=== PATIENT | female | born 1955 | race American Indian/Alaskan Native ===

== ENCOUNTER 2019-05-11 10:20 | Emergency (ER) | payer MEDICARE ==
[2019-05-11] MEDS ORDERED: SODIUM CHLORIDE 0.9% 1000 ML 1,000 ML IV ONE ×2 (10:55→13:20)
[2019-05-11] MEDS ORDERED: ONDANSETRON 4 MG/2 ML INJ IV ONE (10:55)
--- NOTE | 2019-05-11 11:36 | Emergency Department Report ---
HPI - General Chief Complaint: Nausea/Vomiting/Diarrhea Time Seen by Provider: 05/11/19 10:40 - HPI HPI: 64-year-old -[place] female presents to the emergency department with complaint of a 4 to 5-day history of fatigue, generalized weakness, right-sided upper abdominal pain, nausea and vomiting. Patient says she went to her primary care physician's office today, Dr. Doug Smith, but they called an ambulance to bring her to the emergency department "when they saw how I looked." She has a past medical history of hypertension. She has not taken anything for symptoms prior to presentation. She denies any recent travel or sick contacts at home. ED Past Medical Hx - Past Medical History Previous Medical History?: Yes Hx Hypertension: Yes - Surgical History Past Surgical History?: Yes Additional Surgical History: bilateral hip replacement in 2003 - Social History Smoking Status: Current Every Day Smoker Substance Use Type: None - Medications Home Medications: Home Medications Medication Instructions Recorded Confirmed Last Taken Type Albuterol INH(or & Nicu Only) 2 puff IH QID PRN #1 inh 05/11/19 Unknown Rx [ProAir HFA Inhaler] Benzonatate [Tessalon Perles] 100 mg PO Q8HR PRN #20 capsule 05/11/19 Unknown Rx ED Review of Systems ROS: Stated complaint: WEAKNESS/VOMITING Other details as noted in HPI Comment: All other systems reviewed and negative Constitutional: weakness, other (Fatigue). denies: chills Eyes: denies: eye pain, vision change ENT: denies: ear pain, throat pain Respiratory: denies: cough, shortness of breath Cardiovascular: denies: chest pain, palpitations Gastrointestinal: abdominal pain, nausea, vomiting Genitourinary: denies: dysuria, discharge Musculoskeletal: denies: back pain, arthralgia Skin: denies: rash, lesions Neurological: denies: headache, weakness Physical Exam - Physical Exam Vital Signs: Vital Signs 05/11/19 05/11/19 05/11/19 10:30 10:38 10:45 Temperature 100.1 F H Pulse Rate 108 H 112 H Respiratory 24 26 H 30 H Rate Blood Pressure 100/61 94/57 O2 Sat by Pulse 95 95 Oximetry Physical Exam: GENERAL: The patient is well-developed well-nourished. HENT: Normocephalic. Atraumatic. Patient has moist mucous membranes. EYES: Extraocular motions are intact. Pupils equal reactive to light bilaterally. NECK: Supple. Trachea is midline. CHEST/LUNGS: Clear to auscultation. A productive cough is heard. There is tachypnea but no accessory muscle use. There is no respiratory distress noted. HEART/CARDIOVASCULAR: Regular. There is no tachycardia. There is no murmur. ABDOMEN: Abdomen is soft. Right upper quadrant abdominal tenderness to palpation. No guarding. Patient has normal bowel sounds. There is no abdominal distention. SKIN: Skin is warm and dry. NEURO: The patient is awake, alert, and oriented. The patient is cooperative. The patient has no focal neurologic deficits. Normal speech. Cranial nerves II through XII grossly intact. MUSCULOSKELETAL: There is no tenderness or deformity. There is no evidence of acute injury. ED Course Vital Signs 05/11/19 05/11/19 05/11/19 10:30 10:38 10:45 Temperature 100.1 F H Pulse Rate 108 H 112 H Respiratory 24 26 H 30 H Rate Blood Pressure 100/61 94/57 O2 Sat by Pulse 95 95 Oximetry ED Medical Decision Making - Lab Data Result diagrams: 05/11/19 11:24 05/11/19 11:24 - EKG Data -: EKG Interpreted by Me EKG shows normal: sinus rhythm, axis, intervals, QRS complexes, ST-T waves Rate: normal - EKG Data When compared to previous EKG there are: previous EKG unavailable Interpretation: normal EKG - Radiology Data Radiology results: report reviewed, image reviewed interpreted by me: Chest x-ray does not show any acute process. There are no pleural effusions, obvious pneumonia and there is no pneumothorax. Abdominal x-ray shows nonspecific nonobstructive bowel gas ULTRASOUND ABDOMEN, LIMITED (RIGHT UPPER QUADRANT) INDICATION: Right upper quadrant pain with nausea and vomiting for one week. COMPARISON: Acute abdominal series from earlier today. FINDINGS: Pancreas: Visualized portion shows no significant abnormality. Liver: No significant abnormality. Gallbladder: Multiple gallstones are seen without wall thickening or pericholecystic fluid. Sonographic Lee's sign: Negative. Bile ducts: No significant abnormality. Common Bile Duct measures 4.3 mm. Free fluid: None. Additional Findings: None. I MPRESSION: Cholelithiasis without sonographic evidence of acute cholecystitis. - Medical Decision Making This patient presents to the emergency department with a complaint of a 4 to 5- day history of abdominal pain, nausea and vomiting, productive cough. She p resents with a very low-grade fever. Chest x-ray did not show any pneumonia, pleural effusions, pneumothorax, focal consolidation, or any other acute process. Abdominal x-ray shows nonspecific nonobstructive bowel gas. An abdominal ultrasound was done that shows cholelithiasis without sonographic evidence of cholecystitis. Patient's labs were mostly unremarkable except for renal insufficiency with a creatinine of 1.9 and a GFR of 32. Patient was negative for influenza a and B, rapid strep. Urinalysis did not show any urinary tract infection. The patient was given a dose of Tylenol which improved the fever. The rest of the patient's vital signs have been stable. The patient does not have any electrolyte abnormalities and is making normal urine. Therefore she does not appear to require admission for her renal insufficiency. The patient appears to have bronchitis and/or a viral URI. She has been instructed to go home to a 14-day self quarantine. She has also been instructed to return to the emergency department immediately with any worsening of her symptoms, development of shortness of breath, a high or intractable fever, or with any acute distress. She has been given referrals for nephrology for her renal insufficiency, general surgery for the cholelithiasis, and instructed to follow-up with her primary care physician. All of her questions have been answered and she understands and agrees to the plan. - Differential Diagnosis Cholelithiasis, cholecystitis, bronchitis, pneumonia, viral URI Critical Care Time: No Critical care attestation.: If time is entered above; I have spent that time in minutes in the direct care of this critically ill patient, excluding procedure time. ED Disposition Clinical Impression: Bronchitis, Viral URI, Renal insufficiency Disposition: DC-01 TO HOME OR SELFCARE Is pt being admited?: No Condition: Stable Instructions: Upper Respiratory Infection (ED), Acute Bronchitis (ED), Viral Syndrome (ED), Impaired Kidney Function (ED) Additional Instructions: Your chest x-ray was negative for pneumonia. Your flu test was negative for both influenza A and influenza B. You appear to have bronchitis and a viral upper respiratory infection. We are unable to test for Covid-19 (Coronavirus) in the emergency department at this time. You will need to self quarantine for the next 14 days to avoid passing along or spreading any infection. However, please return to the emergency department immediately with any worsening of your symptoms including shortness of breath, very high or intractable fever, or with any acute distress. I am giving you a referral for a local armature straightener, Dr. Rodrigues, to follow-up regarding your impaired kidney function. Make sure you stay hydrated. Given the impaired kidney function, please avoid taking any anti-inflammatories such as Aleve, ibuprofen, naproxen, Advil. I am also giving you a referral for a local general surgeon, Dr. Huntley, to follow-up in the future regarding your gallstones. You can treat your fever or body aches with Tylenol, which can be taken every 4- 6 hours, using the dosing on the back of the bottle. Prescriptions: Albuterol INH(or & Nicu Only) [ProAir HFA Inhaler] 2 puff IH QID PRN #1 inh PRN Reason: Shortness Of Breath Benzonatate [Tessalon Perles] 100 mg PO Q8HR PRN #20 capsule PRN Reason: Cough Referrals: DION HUNTLEY MD [Staff Physician] - REHANA LOCKETT MD [Staff Physician] - DOUG MONGE MD [Staff Physician] - [facility] Time of Disposition: 14:37
--- NOTE | 2019-05-11 11:39 | XRay Report ---
ABDOMEN 4 VIEW(S) INDICATION: Unspecified abdominal pain. COMPARISON: None available. FINDINGS: Bowel gas pattern: No significant abnormality. Free air: None seen. Stones: None seen. Chest: No acute findings. Additional Findings: No additional significant findings. IMPRESSION: 1. No acute findings. Signer Name: Yovani Brown MD Signed: 05/11/2019 11:35 AM Workstation Name: [id number]
[2019-05-11 11:49] LABS: Basophils % (Auto) 0.2 % (0.0-1.8); Eosinophils % (Auto) 0.1 % (0.0-4.3); Hematocrit 43.8 % (30.3-42.9); Hemoglobin 14.3 gm/dl (10.1-14.3); Lymphocytes # (Auto) 1.1 K/mm3 (1.2-5.4); Lymphocytes % (Auto) 22.6 % (13.4-35.0); Mean Corpuscular HGB Conc 33 % (30-34); Mean Corpuscular Volume 86 fl (79-97); Monocytes # (Auto) 0.5 K/mm3 (0.0-0.8); Monocytes % (Auto) 11.1 % (0.0-7.3); Platelet Count 215 K/mm3 (140-440); Red Blood Count 5.12 M/mm3 (3.65-5.03); Red Cell Distribution Width 15.6 % (13.2-15.2)
[2019-05-11] MEDS ORDERED: ACETAMINOPHEN 325 MG TAB PO ONE (12:04)
[2019-05-11 12:14] LABS: Alanine Aminotransferase 48 units/L (7-56); Albumin 3.5 g/dL (3.9-5); BUN/Creatinine Ratio 18; Blood Urea Nitrogen 34 mg/dL (7-17); Calcium 8.1 mg/dL (8.4-10.2); Hemolysis Index 7
--- NOTE | 2019-05-11 13:08 | Ultrasound Report ---
ULTRASOUND ABDOMEN, LIMITED (RIGHT UPPER QUADRANT) INDICATION: Right upper quadrant pain with nausea and vomiting for one week. COMPARISON: Acute abdominal series from earlier today. FINDINGS: Pancreas: Visualized portion shows no significant abnormality. Liver: No significant abnormality. Gallbladder: Multiple gallstones are seen without wall thickening or pericholecystic fluid. Sonograp hic Lee's sign: Negative. Bile ducts: No significant abnormality. Common Bile Duct measures 4.3 mm. Free fluid: None. Additional Findings: None. IMPRESSION: Cholelithiasis without sonographic evidence of acute cholecystitis. Signer Name: Yovani Brown MD Signed: 05/11/2019 1:04 PM Workstation Name: [id number]
[2019-05-11 14:17] LABS: Bacteria,Urine 2+ /HPF (Negative); Bilirubin,Urine NEG (Negative); Blood,Urine NEG (Negative); Color,Urine Yellow (Yellow); Hyaline Casts,Urine 4 /LPF; Mucus,Urine FEW /HPF; Urobilinogen,Urine < 2.0 mg/dL (<2.0)
[2019-05-11 15:31] VITALS: BP 93/60
== END 2019-05-11 15:17 | disposition home or self-care (01) ==
LOC: ED 10:20
DX: J40 Bronchitis, not specified as acute or chronic (principal); J06.9 Acute upper respiratory infection, unspecified; B97.89 Other viral agents as the cause of diseases classified elsewhere; R11.2 Nausea with vomiting, unspecified; N28.9 Disorder of kidney and ureter, unspecified; I10 Essential (primary) hypertension; F17.200 Nicotine dependence, unspecified, uncomplicated; Z79.899 Other long term (current) drug therapy
CPT/HCPCS: 36415; 74022; 76705; 80053; 81001; 83690; 84443; 84484; 85025; 87116; 87400; 87430; 93005; 93010; 96361; 96374; 99285; J2405; J7030